=== PATIENT | female | born 1935 | race Caucasian/White ===

== ENCOUNTER 2023-03-03 08:22 | Inpatient (IN) | payer BC, MEDICARE ==
[2023-03-03 08:41] LABS: Glucose,Whole Blood 103 mg/dL (70-110)
--- NOTE | 2023-03-03 08:46 | ED ---
General Adult HPI - General Stated complaint: STROKE Time Seen by Provider: 03/03/23 08:29 Source: patient, EMS, RN notes reviewed, old records reviewed Mode of arrival: EMS Limitations: no limitations - History of Present Illness Initial comments: Patient is an 87-year-old female who presents the department complaining of neuro symptoms. Has a history of hypertension, hyperlipidemia, acid reflux. Is not on blood thinners. Did not fall. States last known well definitively was last night at 8 PM. Weeks up frequently throughout the night and did not obviously noticed symptoms from last time she woke was approximately 5-6 hours ago at 3-4 AM. Unknown of symptoms at this time. Awoke this morning again for the day and noticed that she had left-sided facial droop, slurred speech, left- sided weakness and paresthesias. Presents for further evaluation at this time. No history of strokes. States symptoms have been more or less constant since awakening. Has no other acute complaints at this time. Presents for further evaluation. As stated above, does not take any blood thinners. - Related Data Allergies Allergy/AdvReac Type Severity Reaction Status Date / Time No Known Allergies Allergy Verified 03/03/23 08:35 Review of Systems ROS Statement: Those systems with pertinent positive or pertinent negative responses have been documented in the HPI. Review of Systems: CONST: Denies fever EYES: Denies blurry vision ENT: Denies nasal congestion C/V: Denies Chest pain RESP: Denies shortness of breath GI: Denies abdominal pain : Denies dysuria SKIN: Denies rash. MSK: Denies joint pain. NEURO: Denies headache ROS Other: All systems not noted in ROS Statement are negative. Past Medical History Past Medical History: Hyperlipidemia, Hypertension Additional Past Medical History / Comment(s): "Water pill for fluid in body," unsure why. Nerve pill. History of Any Multi-Drug Resistant Organisms: None Reported Past Surgical History: No Surgical Hx Reported Past Psychological History: No Psychological Hx Reported Smoking Status: Never smoker Past Alcohol Use History: None Reported Past Drug Use History: None Reported General Exam - General Exam Comments Initial Comments: General: Appears in no acute distress. HEAD: Normal with no signs of head trauma. EYES: PERRLA, EOMI, conjunctiva normal, no discharge. Pupils are 3 mm and equal bilaterally. ENT: Hearing grossly intact, normal oropharynx. RESPIRATORY: Clear breath sounds bilaterally. No wheezes, rales, or rhonchi. C/V: Regular rate and rhythm. S1 and S2 auscultated, no edema, peripheral pulses 2+ and intact throughout ABD: Abd is soft, nontender, nondistended EXT: Normal range of motion, no obvious deformity SKIN: No rashes or lesions observed on exposed skin. NEURO: Alert and oriented 4. GCS of 15. NIH is 4. She receives one point for left-sided mild weakness of the left upper extremity with drift, 1 point for left-sided sensory deficits to light touch in the hand as well as the lower leg, 1 point for facial droop, 1 point for dysarthria. Limitations: no limitations Course Vital Signs 03/03/23 03/03/23 03/03/23 08:26 08:45 09:00 Temperature 97.8 F 97.6 F Pulse Rate 92 92 Respiratory 16 17 Rate Blood Pressure 117/81 O2 Sat by Pulse 97 98 Oximetry 03/03/23 03/03/23 03/03/23 09:15 09:30 09:45 Temperature Pulse Rate 94 93 88 Respiratory 18 16 18 Rate Blood Pressure 170/77 169/85 166/79 O2 Sat by Pulse 97 96 96 Oximetry 03/03/23 10:15 Temperature Pulse Rate 97 Respiratory 18 Rate Blood Pressure 155/85 O2 Sat by Pulse 98 Oximetry Medical Decision Making - Medical Decision Making Was pt. sent in by a medical professional or institution ([facility], CLIENT SOLUTIONS SPECIALIST, urgent care, hospital, or group home...) When possible be specific @ -No Did you speak to anyone other than the patient for history (EMS, parent, family, police, friend...)? What history was obtained from this source @ -No Did you review nursing and triage notes (agree or disagree)? Why? @ -I reviewed and agree with nursing and triage notes Were old charts reviewed (outside hosp., previous admission, EMS record, old EKG, old radiological studies, urgent care reports/EKG's, group home records)? Report findings @ -Old charts reviewed Differential Diagnosis (chest pain, altered mental status, abdominal pain women, abdominal pain men, vaginal bleeding, weakness, fever, dyspnea, syncope, headach e, dizziness, GI bleed, back pain, seizure, CVA, palpatations, mental health, musculoskeletal)? @ -Differential CVA Ischemic stroke, hemorrhagic stroke, brain tumor, atypical migraine, Wernicke's encephalopathy, seizure, multiple sclerosis, meningitis, encephalitis, hypoglycemia, Guillain-Herman, electrolytes disturbance, myasthenia gravis.... This is not meant to be an all-inclusive list EKG interpreted by me (3pts min.). @ -As above X-rays interpreted by me (1pt min.). @ -Chest x-ray reveals no obvious acute cardio pulmonary process. CT interpreted by me (1pt min.). @ -Patient's CT brain and CT angiogram of the head and neck reveals no obvious acute intracranial process or findings. No obvious evidence of stroke. Some anatomical variation seen in some of the arteries. U/S interpreted by me (1pt. min.). @ -None done What testing was considered but not performed or refused? (CT, X-rays, U/S, lab s)? Why? @ -None What meds were considered but not given or refused? Why? @ -Considered TPA, however patient is outside of the stroke window. Even if we considered her 3 AM to 4 AM wake-up is normal symptoms which she is uncertain, it is currently 8:30 AM and she is outside of the extended TPA window at this time. Last definitely known well was at 8 PM last night. Did you discuss the management of the patient with other professionals (professionals i.e. , PA, CLIENT SOLUTIONS SPECIALIST, lab, RT, psych nurse, social services, can solderer, teacher, medical scientific officer, adult protective caseworker)? Give summary @ -Neuro critical care Dr. Tompkins was paged at approximately 8:35 AM. Stroke activation at 8:30 AM.I spoke with Gina of the stroke team who works under Dr. Tompkins and discussed the case with him. She called back at [phone]. Was in agreement with the plan. They will also review the imaging. They were in agreement that patient is not a TPA candidate.I discussed the results with Gina who called back after they reviewed the imaging. They were in agreement with admission for medical management. Recommended Lipitor, 325 mg of aspirin, permissive hypertension, an MRI without contrast. These were ordered. Also recommended neuro consult. I spoke with Dr. Mendosa of [facility] who accepted the admission. I spoke with Dr. Julio of neurology who accepted the consult was in agreement with the plan. Was smoking cessation discussed for >3mins.? @ -No Was critical care preformed (if so, how long)? @ -Yes, 38 minutes Were there social determinants of health that impacted care today? How? (Homelessness, low income, unemployed, alcoholism, drug addiction, transportation, low edu. Level, literacy, decrease access to med. care, assisted, rehab)? @ -No Was there de-escalation of care discussed even if they declined (Discuss DNR or withdrawal of care, Hospice)? DNR status @ -No What co-morbidities impacted this encounter? (DM, HTN, Smoking, COPD, CAD, Cancer, CVA, ARF, Chemo, Hep., AIDS, mental health diagnosis, sleep apnea, morbid obesity)? @ -None Was patient admitted / discharged? Hospital course, mention meds given and route, prescriptions, significant lab abnormalities, going to OR and other pertinent info. @ -Based on the patient's presentation and physical exam, presents complaining of neuro symptoms. Has an NIH of 4. Definitive last known well was at 8 PM last night. Possibly didn't have symptoms this morning between 3 AM and 4 AM but is uncertain. Either way is greater than 4-1/2 hours definitively since onset of symptoms and therefore does not fall within the time period for TPA administration. I did discuss this with the patient as risks far outweigh the benefits for her and she was in agreement this plan. Patient was made a code stroke. Dr. Tompkins was paged at [phone]. His team, YADIRA Fuentes callback at [phone] and was in agreement with the plan for workup and in agreement that patient is not a TPA candidate. Vital signs within acceptable limits. Patient's imaging negative for any obvious stroke, bleed, large vessel occlusion. EKG shows no signs of acute ischemia. Patient's laboratory studies are unremarkable. On reevaluation, NIH remains a 4. I discussed results with the patient. I discussed the results of the imaging with Gina of the stroke team from neuro critical care under Dr. Tompkins who recommended medical management, senna patient on Lipitor and 325 mg of aspirin, progressive hypertension, as well as an MRI without contrast. This was completed. Neurology Dr. Robertson was consulted and notified and he was in agreement with the plan. I spoke with the admitting physician, Dr. Mendosa who accepted the patient. Patient was in agreement this plan. Undiagnosed new problem with uncertain prognosis? @ -No Drug Therapy requiring intensive monitoring for toxicity (Heparin, Nitro, Insulin, Cardizem)? @ -No Were any procedures done? @ -No Diagnosis/symptom? @ -CVA Acute, or Chronic, or Acute on Chronic? @ -Acute Uncomplicated (without systemic symptoms) or Complicated (systemic symptoms)? @ -Complicated Side effects of treatment? @ -none Exacerbation, Progression, or Severe Exacerbation] @ -no Poses a threat to life or bodily function? @ -Yes - Lab Data Result diagrams: 03/03/23 08:35 03/03/23 08:35 Lab Results 03/03/23 03/03/23 03/03/23 Range/Units 08:30 08:35 08:35 WBC 7.9 (3.8-10.6) k/uL RBC 5.11 (3.80-5.40) m/uL Hgb 15.6 (11.4-16.0) gm/dL Hct 46.9 H (34.0-46.0) % MCV 91.7 (80.0-100.0) fL MCH 30.6 (25.0-35.0) pg MCHC 33.3 (31.0-37.0) g/dL RDW 12.1 (11.5-15.5) % Plt Count 277 (150-450) k/uL MPV 8.0 Neutrophils % 70 % Lymphocytes % 21 % Monocytes % 5 % Eosinophils % 2 % Basophils % 0 % Neutrophils # 5.5 (1.3-7.7) k/uL Lymphocytes # 1.6 (1.0-4.8) k/uL Monocytes # 0.4 (0-1.0) k/uL Eosinophils # 0.2 (0-0.7) k/uL Basophils # 0.0 (0-0.2) k/uL PT 10.5 (10.0-12.5) sec INR 0.9 (<1.2) APTT 22.7 (22.0-30.0) sec Sodium (137-145) mmol/L Potassium (3.5-5.1) mmol/L Chloride (98-107) mmol/L Carbon Dioxide (22-30) mmol/L Anion Gap mmol/L BUN (7-17) mg/dL Creatinine (0.52-1.04) mg/dL Est GFR (CKD-EPI)AfAm (>60 ml/min/1.73 sqM) Est GFR (CKD-EPI)NonAf (>60 ml/min/1.73 sqM) Glucose (74-99) mg/dL POC Glucose (mg/dL) 103 (70-110) mg/dL POC Glu Manager Content ID June Calcium (8.4-10.2) mg/dL Total Bilirubin (0.2-1.3) mg/dL AST (14-36) U/L ALT (4-34) U/L Alkaline Phosphatase (38-126) U/L Creatine Kinase (30-135) U/L Troponin I (0.000-0.034) ng/mL Total Protein (6.3-8.2) g/dL Albumin (3.5-5.0) g/dL 03/03/23 03/03/23 Range/Units 08:35 08:35 WBC (3.8-10.6) k/uL RBC (3.80-5.40) m/uL Hgb (11.4-16.0) gm/dL Hct (34.0-46.0) % MCV (80.0-100.0) fL MCH (25.0-35.0) pg MCHC (31.0-37.0) g/dL RDW (11.5-15.5) % Plt Count (150-450) k/uL MPV Neutrophils % % Lymphocytes % % Monocytes % % Eosinophils % % Basophils % % Neutrophils # (1.3-7.7) k/uL Lymphocytes # (1.0-4.8) k/uL Monocytes # (0-1.0) k/uL Eosinophils # (0-0.7) k/uL Basophils # (0-0.2) k/uL PT (10.0-12.5) sec INR (<1.2) APTT (22.0-30.0) sec Sodium 138 (137-145) mmol/L Potassium 4.8 (3.5-5.1) mmol/L Chloride 101 (98-107) mmol/L Carbon Dioxide 27 (22-30) mmol/L Anion Gap 10 mmol/L BUN 13 (7-17) mg/dL Creatinine 0.62 (0.52-1.04) mg/dL Est GFR (CKD-EPI)AfAm >90 (>60 ml/min/1.73 sqM) Est GFR (CKD-EPI)NonAf 82 (>60 ml/min/1.73 sqM) Glucose 124 H (74-99) mg/dL POC Glucose (mg/dL) (70-110) mg/dL POC Glu Manager Content ID Calcium 10.1 (8.4-10.2) mg/dL Total Bilirubin 0.9 (0.2-1.3) mg/dL AST 39 H (14-36) U/L ALT 23 (4-34) U/L Alkaline Phosphatase 99 (38-126) U/L Creatine Kinase 68 (30-135) U/L Troponin I <0.012 (0.000-0.034) ng/mL Total Protein 7.9 (6.3-8.2) g/dL Albumin 4.4 (3.5-5.0) g/dL - EKG Data -: EKG Interpreted by Me EKG Comments: 12-lead Electrocardiogram Interpretation Note EKG was reviewed and interpreted by myself. 12-lead ECG performed at 0851 is interpreted by me as revealing normal sinus rhythm at a rate of 90 beats per minute. [place] is normal. [place] interval is 182 ms, QRS duration is 86 ms, QTc is 400 ms.. There were no ST or T wave abnormalities to suggest myocardial ischemia or injury. R wave progression across the precordium was satisfactory. By my interpretation this EKG is non-diagnostic for acute ischemia. Critical Care Time Critical Care Time: Yes Total Critical Care Time: 38 Disposition Clinical Impression: Cerebrovascular accident (CVA) Disposition: ADMITTED IP TO THIS HOSP Condition: Stable Referrals: CASIMIRO TYLER, KESHA [REFERRING] - 1-2 days Time of Disposition: 09:41
[2023-03-03 08:49] LABS: Basophils % (A) 0 %; Eosinophils # (A) 0.2 k/uL (0-0.7); Eosinophils % (A) 2 %; HCT 46.9 % (34.0-46.0); HGB 15.6 gm/dL (11.4-16.0); Lymphocytes # (A) 1.6 k/uL (1.0-4.8); Lymphocytes % (A) 21 %; MCH 30.6 pg (25.0-35.0); MCHC 33.3 g/dL (31.0-37.0); MCV 91.7 fL (80.0-100.0); Monocytes # (A) 0.4 k/uL (0-1.0); Monocytes % (A) 5 %; Neutrophils # (A) 5.5 k/uL (1.3-7.7); Neutrophils % (A) 70 %; Platelet Count 277 k/uL (150-450); RBC 5.11 m/uL (3.80-5.40); RDW 12.1 % (11.5-15.5); WBC 7.9 k/uL (3.8-10.6)
--- NOTE | 2023-03-03 08:57 | CT ---
EXAMINATION TYPE: CT brain wo con DATE OF EXAM: 03/03/2023 COMPARISON: 01/17/2013 HISTORY: 87-year-old female slurred speech, lt facial droop TECHNIQUE: Examination was done in axial plane without intravenous contrast. Coronal and sagittal r econstructions performed. CT DLP: 1099.6 mGycm Automated exposure control for dose reduction was used. FINDINGS: There is no evidence of acute intracranial hemorrhage, acute ischemic changes, mass, mass-effect, or extra-axial fluid collection. There is no effacement of cerebral sulci or basal subarachnoid cister ns. There is no hydrocephalus. There is no midline shift. Cueto-white matter distinction is preserv ed. Paranasal sinuses and mastoid air cells well pneumatized. Orbits and globes are intact. IMPRESSION: No acute intracranial abnormality seen.
[2023-03-03 08:58] LABS: INR 0.9 (<1.2); Partial Thromboplastin Time 22.7 sec (22.0-30.0); Prothrombin Time 10.5 sec (10.0-12.5)
--- NOTE | 2023-03-03 09:00 | XR ---
EXAMINATION TYPE: XR chest 2V DATE OF EXAM: 03/03/2023 8:53 AM CLINICAL INDICATION:Female, 87 years old with history of altered mental status; COMPARISON: Chest radiographs from 07/20/2011. TECHNIQUE: XR chest 2V Frontal and lateral views of the chest. FINDINGS: Lungs/Pleura: There is no evidence of pleural effusion, focal consolidation, or pneumothorax. Pulmonary vascularity: Unremarkable. Heart/mediastinum: Cardiomediastinal silhouette is enlarged and stable. Atherosclerotic calcificatio ns are seen in the aorta. Musculoskeletal: No acute osseous pathology. IMPRESSION: Chronic changes without acute pulmonary process.
[2023-03-03 09:14] LABS: ALT 23 U/L (4-34); African American GFR (CKD) >90 (>60 ml/min/1.73 sqM); Albumin 4.4 g/dL (3.5-5.0); Anion Gap 10 mmol/L; Blood Urea Nitrogen 13 mg/dL (7-17); Carbon Dioxide 27 mmol/L (22-30); Chloride 101 mmol/L (98-107); Creatine Kinase 68 U/L (30-135); Glucose 124 mg/dL (74-99); Non-African American GFR(CKD) 82 (>60 ml/min/1.73 sqM); Sodium 138 mmol/L (137-145); Total Bilirubin 0.9 mg/dL (0.2-1.3)
[2023-03-03 09:24] LABS: AST 39 U/L (14-36); Alkaline Phosphatase 99 U/L (38-126); Calcium 10.1 mg/dL (8.4-10.2); Potassium 4.8 mmol/L (3.5-5.1); Total Protein 7.9 g/dL (6.3-8.2)
--- NOTE | 2023-03-03 09:31 | CT ---
EXAMINATION TYPE: CT angio head neck DATE OF EXAM: 03/03/2023 COMPARISON: None HISTORY: 87-year-old female slurred speech, lt facial droop TECHNIQUE: Contiguous axial scanning of the head and neck performed with IV Contrast, patient injecte d with 65 mL of Isovue 370. Coronal and sagittal reconstructions performed. 3-D reconstructions gener ated on a dedicated independent workstation. CT DLP: 329 mGycm Automated exposure control for dose reduction was used. FINDINGS: Neck: Mild to moderate atherosclerotic plaque within the aortic arch and conventional arch vessel branching anatomy. The right vertebral artery is dominant. Otherwise, both vertebral arteries are patent throughout thei r course. The right common carotid artery is patent. There is noncalcified plaque within the right carotid bulb contributing to mild to moderate, just und er 50% proximal right ICA stenosis by NASCET criteria. The left common and left internal carotid arteries are patent. Head: Dominant right vertebral artery. The V4 segment left vertebral artery becomes even more hypoplastic. Otherwise, both vertebral and basilar arteries are patent. There is persistent origin right PROGRAM DEVELOPMENT MANAGER. Posterior circulation otherwise patent. The bilateral internal carotid arteries are patent. Hypoplastic A1 segment right BERENICE. Anterior circul ation otherwise patent. No aneurysmal changes seen. IMPRESSION: NECK: 1. NONCALCIFIED PLAQUE CONTRIBUTING TO MILD, JUST UNDER 50% PROXIMAL RIGHT ICA STENOSIS. 2. 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 HEAD: 3. NO LARGE VESSEL INTRACRANIAL ARTERIAL OCCLUSION, SIGNIFICANT STENOSIS, OR ANEURYSMAL CHANGE IS SEE N. 4. ANATOMIC VARIATION: PERSISTENT ORIGIN RIGHT PROGRAM DEVELOPMENT MANAGER. V4 SEGMENT LEFT VERTEBRAL ARTERY BECOMES EV EN MORE HYPOPLASTIC. ALSO, HYPOPLASTIC A1 SEGMENT RIGHT BERENICE.
[2023-03-03] MEDS ORDERED: ASPIRIN 325 MG TAB PO STA (09:50)
[2023-03-03] MEDS ORDERED: ATORVASTATIN 40 MG TAB PO STA (09:59)
[2023-03-03] MEDS: ATORVASTATIN 80 MG TAB PO STA ×2 (09:59→10:01)
[2023-03-03 10:32] LABS: Appearance,Urine Clear (Clear); Bilirubin,Urine Negative (Negative); Blood,Urine Negative (Negative); Color,Urine Colorless; Glucose,Urine (UA) Negative (Negative); Ketones,Urine Negative (Negative); Leukocyte Esterase,Urine Negative (Negative); Nitrite,Urine Negative (Negative); Protein,Urine Negative (Negative); Specific Gravity,Urine 1.026 (1.001-1.035); Urobilinogen,Urine <2.0 mg/dL (<2.0)
[2023-03-03 10:41] LABS: Amphetamine Screen,Urine Not Detected (NotDetected); Barbiturate Screen,Urine Not Detected (NotDetected); Benzodiazepines Screen,Urine Detected (NotDetected); Cocaine Screen,Urine Not Detected (NotDetected); Methadone Screen, Urine Not Detected (NotDetected); Opiate Screen,Urine Not Detected (NotDetected); Oxycodone Screen, Urine Not Detected (NotDetected); Phencyclidine Screen,Urine Not Detected (NotDetected); Tricyclic Antidepressant,Urine Not Detected (NotDetected); Urn Cannabinoid Scrn Not Detected (NotDetected)
--- NOTE | 2023-03-03 14:30 | MR ---
EXAMINATION TYPE: MR brain wo con DATE OF EXAM: 03/03/2023 1:41 PM CLINICAL INDICATION:Female, 87 years old with history of Neuro deficit, acute, stroke suspected, Slur red speech, left facial droop COMPARISON: 03/03/2023.. TECHNIQUE: Multi planar, multi sequence imaging was performed through the brain including: T1, T2, In version recovery, Diffusion weighted imaging, and gradient echo imaging. No gadolinium was given. FINDINGS: Areas of restricted diffusion within the right posterior frontal lobe cortex, the right cor jona radiata and more medial in the posterior right frontal lobe. The bernal-white junctions, ventricula r system, basal cisterns appear unremarkable. Scattered foci of high T2 signal intensity are seen w ithin the periventricular white matter. Midline structures show no abnormality. The susceptibility we ighted images do not reveal any evidence for micro-hemorrhage. The bone marrow signal is within normal limits. Paranasal sinuses and mastoid air cells: No significant paranasal sinus disease. Visualized orbits: Orbital contents are intact. IMPRESSION: 1. Acute/subacute right ayala radiata and right posterior frontal lobe cortical CVA. 2. Nonspecific white matter changes, likely secondary to small vessel ischemic disease.
--- NOTE | 2023-03-03 16:54 | P.HPIM ---
History of Present Illness H&P Date: 03/03/23 Chief Complaint: Left-sided facial droop 87-year-old female who presents the department complaining of neuro symptoms. Has a history of hypertension, hyperlipidemia, acid reflux. Is not on blood thinners. Did not fall. States last known well definitively was last night at 8 PM. Weeks up frequently throughout the night and did not obviously noticed symptoms from last time she woke was approximately 5-6 hours ago at 3-4 AM. Unknown of symptoms at this time. Awoke this morning again for the day and noticed that she had left-sided facial droop, slurred speech, left-sided weakness and paresthesias. Presents for further evaluation at this time. No history of strokes. States symptoms have been more or less constant since awakening. Has no other acute complaints at this time. Presents for further evaluation. As stated above, does not take any blood thinners. Code stroke was activated; patient is outside window for TPA Blood work revealed sodium 138, potassium 4.8, BUN/creatinine of 13/0.62 and blood glucose of 124, WBC 7.9, hemoglobin 15.6 and platelet count of 277, troponin less than 0.[address] head is negative for any acute intracranial abnormality; CT head and neck doesn't reveal any large vessel occlusion; mild proximal right ICA stenosis at 50% -- Patient was discussed with telemetry stroke team and is recommended admission for observation and to complete stroke workup and MRI is ordered Review of Systems REVIEW OF SYSTEMS: CONSTITUTIONAL: No fever, no malaise, no fatigue. HEENT: No recent visual problems or hearing problems. Denied any sore throat. CARDIOVASCULAR: No chest pain, orthopnea, PND, no palpitations, no syncope. PULMONARY: No shortness of breath, no cough, no hemoptysis. GASTROINTESTINAL: No diarrhea, no nausea, no vomiting, no abdominal pain. NEUROLOGICAL: No headaches, no weakness, no numbness. HEMATOLOGICAL: Denies any bleeding or petechiae. GENITOURINARY: Denies any burning micturition, frequency, or urgency. MUSCULOSKELETAL/RHEUMATOLOGICAL: Denies any joint pain, swelling, or any muscle pain. ENDOCRINE: Denies any polyuria or polydipsia. The rest of the 14-point review of systems is negative. Past Medical History Past Medical History: Hyperlipidemia, Hypertension Additional Past Medical History / Comment(s): "Water pill for fluid in body," unsure why. Nerve pill. History of Any Multi-Drug Resistant Organisms: None Reported Past Surgical History: No Surgical Hx Reported Past Psychological History: No Psychological Hx Reported Smoking Status: Never smoker Past Alcohol Use History: None Reported Past Drug Use History: None Reported Medications and Allergies Home Medications Medication Instructions Recorded Confirmed Type Atorvastatin [Lipitor] 40 mg PO HS 03/03/23 03/03/23 History Latanoprost [Latanoprost 0.005%] 1 drop BOTH EYES HS 03/03/23 03/03/23 History Levothyroxine Sodium [Synthroid] 75 mcg PO DAILY 03/03/23 03/03/23 History Omeprazole [PriLOSEC] 20 mg PO DAILY 03/03/23 03/03/23 History Spironolactone [Aldactone] 25 mg PO DAILY 03/03/23 03/03/23 History Timolol 0.5% Ophth Soln [Timoptic 1 drop BOTH EYES BID 03/03/23 03/03/23 History 0.5% Ophth Soln] amLODIPine [Norvasc] 5 mg PO BID 03/03/23 03/03/23 History diazePAM [Valium] 5 mg PO DAILY PRN 03/03/23 03/03/23 History Allergies Allergy/AdvReac Type Severity Reaction Status Date / Time No Known Allergies Allergy Verified 03/03/23 11:54 Physical Exam Vitals: Vital Signs Temp Pulse Resp BP Pulse Ox 03/03/23 11:44 89 17 154/88 98 03/03/23 11:14 86 16 162/47 97 03/03/23 10:45 88 18 163/83 98 03/03/23 10:15 97 18 155/85 98 03/03/23 09:45 88 18 166/79 96 03/03/23 09:30 93 16 169/85 96 03/03/23 09:15 94 18 170/77 97 03/03/23 09:00 92 17 117/81 98 03/03/23 08:45 97.6 F 92 16 97 03/03/23 08:26 97.8 F Intake and Output 03/02/23 03/03/23 03/03/23 22:59 06:59 14:59 Other: Weight 68.039 kg General: Appears in no acute distress. HEAD: Normal with no signs of head trauma. EYES: PERRLA, EOMI, conjunctiva normal, no discharge. Pupils are 3 mm and equal bilaterally. ENT: Hearing grossly intact, normal oropharynx. RESPIRATORY: Clear breath sounds bilaterally. No wheezes, rales, or rhonchi. C/V: Regular rate and rhythm. S1 and S2 auscultated, no edema, peripheral pulses 2+ and intact throughout ABD: Abd is soft, nontender, nondistended EXT: Normal range of motion, no obvious deformity SKIN: No rashes or lesions observed on exposed skin. NEURO: Alert and oriented 4. GCS of 15. NIH is 4. She receives one point for left-sided mild weakness of the left upper extremity with drift, 1 point for left-sided sensory deficits to light touch in the hand as well as the lower leg, 1 point for facial droop, 1 point for dysarthria. Results CBC & Chem 7: 03/03/23 08:35 03/03/23 08:35 Labs: Abnormal Lab Results - Last 24 Hours (Table) 03/03/23 03/03/23 03/03/23 Range/Units 08:35 08:35 08:35 Hct 46.9 H (34.0-46.0) % Glucose 124 H (74-99) mg/dL AST 39 H (14-36) U/L U Benzodiazepines Scrn Detected H (NotDetected) Assessment and Plan Assessment: 1. Acute CVA -- Patient presents with Left sided facial droop with slurred speech and left- sided weakness and paresthesias -- Head CT along with CTA head and neck was unremarkable - Patient has been evaluated by telemetry stroke team and is recommended MRI of the brain without contrast and aspirin 325 mg daily and Lipitor - Patient currently placed on neuro checks per protocol; seizure precautions - Aspirin 325 mg daily along with Lipitor 40 mg daily -- Permissive hypertension - Neurology consulted 2. Hypertension; patient takes amlodipine 5 mg twice a day along with Aldactone 25 mg daily; hold antihypertensive therapy for permissive hypertension 3. Hypothyroidism; levothyroxine 75 MCG daily 4. GERD/gastritis; omeprazole 20 mg daily DVT prophylaxis; SCDs only CODE STATUS; full code
[2023-03-03] MEDS ORDERED: CLOPIDOGREL 75 MG TAB PO STA (17:58)
--- NOTE | 2023-03-03 19:16 | US ---
EXAMINATION TYPE: US carotid duplex BILAT DATE OF EXAM: 03/03/2023 COMPARISON: CTA CLINICAL INDICATION: Female, 87 years old with history of Right ICA stenosis, <50% but probably sympt omatic; Right ICA stenosis on CTA TECHNIQUE: Carotid duplex ultrasound examination. Indirect Doppler criteria was utilized. FINDINGS: EXAM MEASUREMENTS: RIGHT: Peak Systolic Velocity (PSV) cm/sec ----- Right CCA: 102 ----- Right ICA: 191 ----- Right ECA: 182 ICA/CCA ratio: 1.9 RIGHT: End Diastole cm/sec ----- Right CCA: 12.5 ----- Right ICA: 24.1 ----- Right ECA: 27.5 LEFT: Peak Systolic Velocity (PSV) cm/sec ----- Left CCA: 131 ----- Left ICA: 120 ----- Left ECA: 139 ICA/CCA ratio: 0.9 LEFT: End Diastole cm/sec ----- Left CCA: 16.7 ----- Left ICA: 23.4 ----- Left ECA: 12.7 VERTEBRALS (direction of flow): Right Vertebral: Antegrade Left Vertebral: Antegrade Rhythm: Normal OUTDOOR LANDSCAPE ARCHITECT NOTES: Slightly elevated velocities right ICA with slightly higher ratios on right when c ompared to left IMPRESSION: 1. 50-69% stenosis of the right bifurcation. 2. Left and 50% stenosis of the left carotid bifurcation. Criteria for Assigning % of Stenosis / Diameter reduction (Estimation based on the indirect measurements of the internal carotid artery velocities (ICA PSV). 1. Normal (no stenosis)=ICA PSV < 125 cm/s: ratio < 2.0: ICA EDV<40 cm/s. 2. Less than 50% stenosis=ICA PSV < 125 cm/s: ratio < 2.0: ICA EDV<40 cm/s. 3. 50 to 69% stenosis=ICA PSV of 125 to 230 cm/s: ration 2.0 ? 4.0: ICA EDV 40-100 cm/s. 4. Greater than 70% stenosis to near occlusion= ICA PSV > 230 cm/s: ratio > 4.0: ICA EDV > 100 cm/s. 5. Near occlusion= ICA PSV velocities may be low or undetectable: variable ratio and ICA EDV. 6. Total occlusion=unable to detect flow.
[2023-03-03] MEDS: TIMOLOL 0.5% OPHTH DROPS 5 ML BTL BOTH EYES SCH (20:58)
[2023-03-03] MEDS ORDERED: ATORVASTATIN 40 MG TAB PO SCH (21:00)
[2023-03-03] MEDS ORDERED: LATANOPROST 0.005% OPHTH DROPS 2.5 ML BTL BOTH EYES SCH (21:00)
[2023-03-04] MEDS ORDERED: LEVOTHYROXINE 75 MCG TAB PO SCH (06:30)
[2023-03-04] MEDS: TIMOLOL 0.5% OPHTH DROPS 5 ML BTL BOTH EYES SCH (08:39)
[2023-03-04 08:49] VITALS: RESP 18
[2023-03-04] MEDS ORDERED: CLOPIDOGREL 75 MG TAB PO SCH (09:00)
[2023-03-04] MEDS ORDERED: ASPIRIN 81 MG PO SCH (09:00)
--- NOTE | 2023-03-04 09:31 | P.CNNES ---
History of Present Illness Consult date: 03/03/23 Requesting physician: Jarrell Vitale Reason for Consult: CVA History of Present Illness: Patient is a 87-year-old right-handed female with history of hypertension, otherwise very healthy, came to the hospital at 8:22 AM this morning with acute stroke symptoms. Patient's daughter was also present, who also provided with a history. Patient is very active, does not use any assistive device. Patient called her daughter this morning at 6:30 AM, telling that she is not feeling well. Her daughter lives next door to her, came over and saw there was obvious left facial droop and some slurred speech. She called 911. Patient subsequently mentioned that she woke up between 3-4 a.m. today and felt some weakness in the left leg like tingling as of the socks were too tight. She went to sleep, and when she woke up at around 6 AM, has those symptoms as mentioned. She also noticed some weakness of the left hand. As per EMS flow sheet when they arrive patient was sitting in the dining room, in a chair. She has left-sided facial droop, slurred speech and noticed that she has abnormal sensation in her left arm and left leg. Patient was otherwise alert and oriented 4 in no distress. Stroke scale was positive. It was reported that she woke up around 4 AM with no symptoms and then woke up again at 6 AM with facial droop slurred speech and abnormal sensation. EKG shows sinus rhythm and blood glucose was 137. Patient denied any headache, back pain, chest pain or abdominal pain. Denied any headache, dizziness or blurred vision. No nausea or vomiting. Patient's blood pressure at the scene was 150/93, pulse rate 87 respirations 16, saturation 95%. Vital signs on arrival blood pressure 117/81, pulse rate [address] head showed no acute intracranial process. I personally reviewed CT head, agree with the findings. Chest x-ray showed chronic changes without acute pulmonary process. Patient's blood test shows normal CBC, PT/PTT, normal CMP with AST mildly elevated 39. Troponin and CK are normal. UA negative. Urine drug screen positive for benzodiazepine. Stroke code was activated in the ED staff Dr. Vitale discussed with Dr. Tompkins, and patient was considered not a candidate for TPA because she came outside the window, last known well 3-4 a.m., although later patient has mentioned that she has some symptoms at that time as well with left leg sensation. Patient was not a candidate for thrombectomy because no large vessel occlusion. No previous history of strokes or TIA. She has history of cataract surgery. Patient has hypertension for 10+ years. Denies diabetes. She has hyperlipidemia, on Lipitor. She has never smoked. Patient has been in distress, as her in June 2022 upper they have been for 65 years. Patient does not use any assistive device. She was driving day before and lips completely independent. Patient does take aspirin 81 mg daily for about 10 years. She is very compliant with it. Patient also takes spironolactone, Valium 5 mg when necessary, amlodipine, omeprazole, levothyroxine and Lipitor 40 mg. Review of Systems Constitutional: Denies chills, Denies fever Eyes: denies blurred vision (macular degeneration), denies diplopia, denies pain Ears: right: decreased hearing (from [facility] 3 yrs ago), deny: ear discharge Ears, nose, mouth and throat: Denies headache, Denies sore throat, Denies vertigo Cardiovascular: Denies chest pain, Denies palpitations, Denies shortness of breath Respiratory: Denies cough, Denies excessive sputum Gastrointestinal: Denies abdominal pain, Denies diarrhea, Denies nausea, Denies vomiting Genitourinary: Reports urgency, Reports urinary frequency, Denies mixed incontinence Musculoskeletal: Denies low back pain, Denies myalgias, Denies neck pain Integumentary: Denies pruritus, Denies rash Neurological: Reports as per HPI Psychiatric: Reports anxiety, Reports depression ( passing ) Endocrine: Denies fatigue, Denies weight change Hematologic/Lymphatic: Denies easy bleeding, Denies easy bruising Past Medical History Past Medical History: Hyperlipidemia, Hypertension Additional Past Medical History / Comment(s): "Water pill for fluid in body," unsure why. Nerve pill. History of Any Multi-Drug Resistant Organisms: None Reported Past Surgical History: No Surgical Hx Reported Past Psychological History: No Psychological Hx Reported Smoking Status: Never smoker Past Alcohol Use History: None Reported Past Drug Use History: None Reported Medications and Allergies Home Medications Medication Instructions Recorded Confirmed Type Atorvastatin [Lipitor] 40 mg PO HS 03/03/23 03/03/23 History Latanoprost [Latanoprost 0.005%] 1 drop BOTH EYES HS 03/03/23 03/03/23 History Levothyroxine Sodium [Synthroid] 75 mcg PO DAILY 03/03/23 03/03/23 History Omeprazole [PriLOSEC] 20 mg PO DAILY 03/03/23 03/03/23 History Spironolactone [Aldactone] 25 mg PO DAILY 03/03/23 03/03/23 History Timolol 0.5% Ophth Soln [Timoptic 1 drop BOTH EYES BID 03/03/23 03/03/23 History 0.5% Ophth Soln] amLODIPine [Norvasc] 5 mg PO BID 03/03/23 03/03/23 History diazePAM [Valium] 5 mg PO DAILY PRN 03/03/23 03/03/23 History Allergies Allergy/AdvReac Type Severity Reaction Status Date / Time No Known Allergies Allergy Verified 03/03/23 11:54 Physical Examination - Vital Signs Vital Signs: Vital Signs Temp Pulse Resp BP Pulse Ox 03/03/23 17:10 98.2 F 84 17 150/73 97 03/03/23 15:45 98.0 F 82 16 150/85 98 03/03/23 12:30 86 17 150/76 97 03/03/23 12:00 98.0 F 86 17 147/69 96 03/03/23 11:44 89 17 154/88 98 03/03/23 11:14 86 16 162/47 97 03/03/23 10:45 88 18 163/83 98 03/03/23 10:15 97 18 155/85 98 03/03/23 09:45 88 18 166/79 96 03/03/23 09:30 93 16 169/85 96 03/03/23 09:15 94 18 170/77 97 03/03/23 09:00 92 17 117/81 98 03/03/23 08:45 97.6 F 92 16 97 03/03/23 08:26 97.8 F Intake and Output 03/03/23 03/03/23 03/03/23 06:59 14:59 22:59 Other: Weight 68.039 kg Patient is an elderly female, very pleasant, in no acute distress. Patient is alert awake oriented to time place and person. Speech and language functions are normal. Patient can name and repeat very well. No aphasia, although patient may have very mild dysarthria. Attention, concentration and fund of knowledge is adequate. On cranial nerve examination, pupils are equal, round and reacting to light, visual heath are full on confrontation, with no neglect on double simultaneous stimulation. Extraocular muscles are intact with no nystagmus. Patient has moderate left facial weakness, central type, tongue protrudes to the midline. Palatal elevation and sensation normal, hearing and shoulder shrug normal, facial sensation normal. On muscle strength testing, there is left pronation, no drift. The strength is (right/left) deltoid 5/5, biceps 5/5, triceps 5/5, laboratory technologist 5/5-4+, hip flexion 5-/5-, ankle dorsiflexion 5/5-. Deep tendon reflexes are (right/left) biceps 2/2+, brachioradialis 2/2+, knees 2/2, ankles withdrawal bilaterally. Sensory to touch is equal in the arms, but decreased sensation in the left lower extremity as compared to the right lower extremity. There is no neglect on double simultaneous stimulation. Cerebellar function showed no ataxia for [id number]-wk-[id number] testing. No dysdiadochokinesia. No ataxia for wjhe-sw-wque testing on either side. Tone an d bulk of muscles normal. Gait deferred.. On general examination, there is no carotid bruit or murmur, S1-S2 audible. Chest is clear on consultation. Abdomen is soft nontender. No organomegaly, b owel sounds present. Peripheral pulses are present. No peripheral edema. Results - Laboratory Findings CBC and BMP: 03/03/23 08:35 03/03/23 08:35 Abnormal Lab Findings: Abnormal Labs 03/03/23 03/03/23 03/03/23 08:35 08:35 08:35 Hct 46.9 H Glucose 124 H AST 39 H U Benzodiazepines Scrn Detected H Assessment and Plan Assessment: * Acute ischemic stroke, multifocal (4 areas, but small), involving right hemispheric region involving the right ayala radiata and right posterior frontal lobe cortex. Exact cause is uncertain as patient is compliant with her medications and takes aspirin 81 mg daily. CTA of head and neck revealed slightly less than 50% stenosis right ICA, which uncertain if symptomatic. * Right ICA stenosis, moderate degree * Hypertension * Hyperlipidemia Plan: * MRI of the brain without contrast, revealed acute/subacute right ayala radiata and right posterior frontal lobe cortical CVA. Nonspecific white matter changes, likely secondary to small vessel ischemic disease. I personally reviewed MRI, agree with the findings. * 2-D echo with bubble study to rule out PFO * CTA neck showed: Noncalcified plaque contributing to mild, just under 50% proximal right ICA stenosis. An anatomic variation, with a dominant right vertebral artery. * CTA of the head showed no large vessel intracranial arterial occlusion, significant stenosis or aneurysmal change. Anatomic radiation with persistent origin right LABORATORY SCIENTIST. Hypoplastic A1 segment right BERENICE. * Carotid Doppler, for further evaluation of right ICA stenosis. * Patient's family requesting vascular surgery consultation for right ICA stenosis. * Fasting a.m. lipid panel * Hemoglobin A1c * Permissive hypertension for next 24-48 hours * Patient was taking aspirin 81 mg daily for last 10 years. Patient has failed aspirin regimen. We will add Plavix 75 mg daily. Recommend continuing DAPT for 21 days, then stop aspirin and continue Plavix. We will give loading dose of Plavix 150 mg 1 dose today. * Neuro checks every 4 hours. * Telemetry monitoring rule out any arrhythmia * PT, OT, speech therapy * DVT prophylaxis: Heparin 5000 units subcu every 8 hours * Neurology will continue to follow. Thank you for the consult. Time with Patient: Greater than 30
[2023-03-04 11:26] LABS: Basophils # (A) 0.1 k/uL (0-0.2); Basophils % (A) 1 %; Eosinophils # (A) 0.1 k/uL (0-0.7); Eosinophils % (A) 1 %; HCT 46.7 % (34.0-46.0); HGB 15.6 gm/dL (11.4-16.0); Lymphocytes # (A) 1.8 k/uL (1.0-4.8); Lymphocytes % (A) 23 %; MCHC 33.4 g/dL (31.0-37.0); MCV 92.9 fL (80.0-100.0); Mean Platelet Volume 7.9; Monocytes # (A) 0.5 k/uL (0-1.0); Monocytes % (A) 6 %; Neutrophils # (A) 5.3 k/uL (1.3-7.7); Neutrophils % (A) 68 %; Platelet Count 216 k/uL (150-450); RBC 5.03 m/uL (3.80-5.40); RDW 12.2 % (11.5-15.5); WBC 7.8 k/uL (3.8-10.6)
--- NOTE | 2023-03-04 14:27 | CA ---
Transthoracic Echo Report Name: Liseth Benavides Age: 87 Gender: F : 1935 Exam Date: 03/04/2023 10:14 Exam Location: [facility] Ht (in): 66 Wt (lb): 150 Ordering Physician: Latosha Julio MD Attending/Referring Phys: Product Inspection Coordinator Aquiles Holcomb Procedure CPT: Indications: Acute stroke, multifocal Cardiac Hx: Technical Quality: Fair Contrast 1: Total Dose (mL): Contrast 2: Total Dose (mL): MEASUREMENTS (Male / Female) Normal Values 2D ECHO LV Diastolic Diameter PLAX 2.9 cm 4.2 - 5.9 / 3.9 - 5.3 cm LV Systolic Diameter PLAX 1.6 cm IVS Diastolic Thickness 1.3 cm 0.6 - 1.0 / 0.6 - 0.9 cm LVPW Diastolic Thickness 1.3 cm 0.6 - 1.0 / 0.6 - 0.9 cm LV Relative Wall Thickness 0.9 RV Internal Dim ED PLAX 2.1 cm LVOT Diameter 2.0 cm Aortic Root Diameter 2.5 cm LA Systolic Diameter LX 2.4 cm 3.0 - 4.0 / 2.7 - 3.8 cm LV Diastolic Volume MOD BP 31.8 cm??? 67 - 155 / 56 - 104 cm??? LV Systolic Volume MOD BP 14.9 cm??? - / 19 - 49 cm??? LV Ejection Fraction MOD BP 53.2 % >= 55 % LV Cardiac Index MOD BP 784.5 cm???/min???m??? LV Diastolic Volume MOD 4C 37.0 cm??? LV Systolic Volume MOD 4C 18.7 cm??? LV Ejection Fraction MOD 4C 49.4 % LV Cardiac Index MOD 4C 850.2 cm???/min???m??? LV Diastolic Length 4C 5.4 cm LV Systolic Length 4C 5.1 cm LV Diastolic Volume MOD 2C 26.7 cm??? LV Systolic Volume MOD 2C 11.6 cm??? LV Ejection Fraction MOD 2C 56.7 % LV Cardiac Index MOD 2C 703.3 cm???/min???m??? LV Diastolic Length 2C 5.3 cm LV Systolic Length 2C 4.9 cm LA Volume 32.5 cm??? 18 - 58 / 22 - 52 cm??? LA Volume Index 18.2 cm???/m??? 16 - 28 cm???/m??? DOPPLER AV Peak Velocity 187.1 cm/s AV Peak Gradient 14.0 mmHg AV Mean Velocity 128.3 cm/s AV Mean Gradient 7.7 mmHg AV Velocity Time Integral 42.6 cm LVOT Peak Velocity 115.3 cm/s LVOT Peak Gradient 5.3 mmHg LVOT Velocity Time Integral 26.7 cm LVOT Stroke Volume 85.1 cm??? LVOT Stroke Volume Index 48.1 ml/m??? LVOT Cardiac Index 3949.1 cm???/min???m??? AV Area Cont Eq vti 2.0 cm??? AV Area Cont Eq pk 2.0 cm??? MV Peak Velocity 150.1 cm/s MV Peak Gradient 9.0 mmHg MV Mean Velocity 77.3 cm/s MV Mean Gradient 3.0 mmHg MV Velocity Time Integral 38.5 cm MR Peak Velocity 429.6 cm/s MR Peak Gradient 73.8 mmHg Mitral E Point Velocity 91.2 cm/s Mitral A Point Velocity 134.9 cm/s Mitral E to A Ratio 0.7 MV Deceleration Time 263.3 ms MV E' Velocity 4.7 cm/s Mitral E to MV E' Ratio 19.3 TR Peak Velocity 263.3 cm/s TR Peak Gradient 27.7 mmHg Right Ventricular Systolic Press 32.7 mmHg PV Peak Velocity 100.9 cm/s PV Peak Gradient 4.1 mmHg FINDINGS Left Ventricle Normal LV six=ze and wakk thickness. Left ventricular ejection fraction is estimated at 50-55 %. Right Ventricle Normal right ventricular size. Right Atrium Normal right atrial size. Left Atrium Normal left atrial size. Negative agitated saline study. Mitral Valve Mild to moderate posterior Mitral calcification. Mild MR. Aortic Valve Mild to moderate AV calcification. Mild AI. Tricuspid Valve Structurally normal tricuspid valve. Mild TR. Pulmonic Valve Pulmonic valve not well visualized. No pulmonic regurgitation. Pericardium Normal pericardium. Aorta Normal size aortic root. CONCLUSIONS Negative bubble study. Normal LV size and systolic function Previewed by: Dr. Champ Vu MD (Electronically Signed) Final Date: 04 March 2023 14:26
[2023-03-04 14:34] LABS: African American GFR (CKD) 89 (>60 ml/min/1.73 sqM); Anion Gap 13 mmol/L; Blood Urea Nitrogen 16 mg/dL (7-17); Calcium 9.7 mg/dL (8.4-10.2); Carbon Dioxide 24 mmol/L (22-30); Chloride 102 mmol/L (98-107); Glucose 186 mg/dL (74-99); Non-African American GFR(CKD) 77 (>60 ml/min/1.73 sqM); Sodium 139 mmol/L (137-145)
--- NOTE | 2023-03-04 15:57 | P.GSCN ---
History of Present Illness Consult date: 03/04/23 Reason for Consult: Right carotid stenosis/right hemispheric CVA. History of present illness: Patient is an 87-year-old female who yesterday morning experienced weakness of the left arm and leg associated with left facial droop. This was the first time she has ever experienced a neurologic event. She subsequently presented to the emergency department. Since yesterday morning her neurological symptoms have been improving. She was a never smoker. She denies any previous myocardial infarction. She endorsed no history of claudication. Past Medical History Past Medical History: Hyperlipidemia, Hypertension Additional Past Medical History / Comment(s): "Water pill for fluid in body," unsure why. Nerve pill. History of Any Multi-Drug Resistant Organisms: None Reported Past Surgical History: No Surgical Hx Reported Past Psychological History: No Psychological Hx Reported Smoking Status: Never smoker Past Alcohol Use History: None Reported Past Drug Use History: None Reported Medications and Allergies Home Medications Medication Instructions Recorded Confirmed Type Atorvastatin [Lipitor] 40 mg PO HS 03/03/23 03/03/23 History Latanoprost [Latanoprost 0.005%] 1 drop BOTH EYES HS 03/03/23 03/03/23 History Levothyroxine Sodium [Synthroid] 75 mcg PO DAILY 03/03/23 03/03/23 History Omeprazole [PriLOSEC] 20 mg PO DAILY 03/03/23 03/03/23 History Spironolactone [Aldactone] 25 mg PO DAILY 03/03/23 03/03/23 History Timolol 0.5% Ophth Soln [Timoptic 1 drop BOTH EYES BID 03/03/23 03/03/23 History 0.5% Ophth Soln] amLODIPine [Norvasc] 5 mg PO BID 03/03/23 03/03/23 History diazePAM [Valium] 5 mg PO DAILY PRN 03/03/23 03/03/23 History Allergies Allergy/AdvReac Type Severity Reaction Status Date / Time No Known Allergies Allergy Verified 03/03/23 11:54 Surgical - Exam Osteopathic Statement: *. No significant issues noted on an osteopathic structural exam other than those noted in the History and Physical/Consult. Vital Signs Temp 97.8 F 03/03/23 08:26 Examination revealed left facial droop. Remaining cranial nerve evaluation is unremarkable Nearly normal upper and lower extremity strength is identified on the left compared to the contralateral side. Heart: Regular Lungs: Clear to auscultation bilaterally. Carotid bruit not detected. Femoral, popliteal, DP pulses are intact bilaterally. No leg edema noted. I reviewed the carotid duplex and CT angiography of the carotids. Both demonstrated approximately 50% right ICA stenosis. A long discussion with the patient in reference to these findings. Given the patient's age I believe she might be more properly treated with TCAR procedure as opposed to carotid endarterectomy. I discussed this with and suggested outpatient follow-up with one of my 2 partners for potential carotid stenting via the TCAR approach. I agree with aspirin/statin therapy. Results - Labs 03/04/23 10:33 03/04/23 10:33 Abnormal Lab Results - Last 24 Hours (Table) 03/04/23 03/04/23 Range/Units 10:33 10:33 Hct 46.7 H (34.0-46.0) % Glucose 186 H (74-99) mg/dL Diabetes panel 03/04/23 Range/Units 10:33 Sodium 139 (137-145) mmol/L Potassium 4.0 (3.5-5.1) mmol/L Chloride 102 (98-107) mmol/L Carbon Dioxide 24 (22-30) mmol/L BUN 16 (7-17) mg/dL Creatinine 0.71 (0.52-1.04) mg/dL Glucose 186 H (74-99) mg/dL Calcium 9.7 (8.4-10.2) mg/dL Calcium panel 03/04/23 Range/Units 10:33 Calcium 9.7 (8.4-10.2) mg/dL Pituitary panel 03/04/23 Range/Units 10:33 Sodium 139 (137-145) mmol/L Potassium 4.0 (3.5-5.1) mmol/L Chloride 102 (98-107) mmol/L Carbon Dioxide 24 (22-30) mmol/L BUN 16 (7-17) mg/dL Creatinine 0.71 (0.52-1.04) mg/dL Glucose 186 H (74-99) mg/dL Calcium 9.7 (8.4-10.2) mg/dL Adrenal panel 03/04/23 Range/Units 10:33 Sodium 139 (137-145) mmol/L Potassium 4.0 (3.5-5.1) mmol/L Chloride 102 (98-107) mmol/L Carbon Dioxide 24 (22-30) mmol/L BUN 16 (7-17) mg/dL Creatinine 0.71 (0.52-1.04) mg/dL Glucose 186 H (74-99) mg/dL Calcium 9.7 (8.4-10.2) mg/dL - Imaging Additional studies: Carotid duplex and CT angiography imaging and results reviewed Assessment and Plan Assessment: 1: Approximately 50% right ICA stenosis, most likely symptomatic. 2: Right hemispheric CVA with improving symptoms. Plan: I agree with currently instituted medical therapy. Would recommend office follow-up with either Dr. Tan or Dr. Navarrete for evaluation reference to possible TCAR procedure. Time with Patient: Greater than 30
--- NOTE | 2023-03-04 17:05 | P.DS ---
Providers Date of admission: 03/03/23 09:52 Expected date of discharge: 03/04/23 Attending physician: Hakeem Collier Consults: 03/03/23 09:51 Consult Physician Routine Consulting Provider: Latosha Julio Consult Reason/Comments: CVA Do you want consulting provider notified?: Yes 03/03/23 18:00 Consult Physician Routine Consulting Provider: Darcy Tan Consult Reason/Comments: Right ICA stenosis < 50%, but appears symptomatic, Do you want consulting provider notified?: Yes Primary care physician: Maty Tyler [facility] Course: Chief Complaint: Left-sided facial droop 87-year-old female who presents the department complaining of neuro symptoms. Has a history of hypertension, hyperlipidemia, acid reflux. Is not on blood thinners. Did not fall. States last known well definitively was last night at 8 PM. Weeks up frequently throughout the night and did not obviously noticed symptoms from last time she woke was approximately 5-6 hours ago at 3-4 AM. Unknown of symptoms at this time. Awoke this morning again for the day and noticed that she had left-sided facial droop, slurred speech, left-sided weakness and paresthesias. Presents for further evaluation at this time. No history of strokes. States symptoms have been more or less constant since awakening. Has no other acute complaints at this time. Presents for further e valuation. As stated above, does not take any blood thinners. Code stroke was activated; patient is outside window for TPA Blood work revealed sodium 138, potassium 4.8, BUN/creatinine of 13/0.62 and blood glucose of 124, WBC 7.9, hemoglobin 15.6 and platelet count of 277, troponin less than 0.[address] head is negative for any acute intracranial abnormality; CT head and neck newsome sn't reveal any large vessel occlusion; mild proximal right ICA stenosis at 50% -- Patient was discussed with telemetry stroke team and is recommended admission for observation and to complete stroke workup and MRI is ordered March 04: I assumed care of the patient today. This morning saw the patient in the ER. Her daughter the bedside. Facial droop better. Speech is better. Numbness tingling in the left leg is improved/resolved. Left arm weakness is still present but slightly better. Later 2-D echocardiogram results reviewed-no thrombus. No shunt. Spoke to Dr. Jordan from vascular. Patient will benefit from a stent he feels N patient should follow-up with Dr. Navarrete outpatient. Also discussed with Dr. Robertson from neurology. Continue aspirin and Plavix and stop aspirin after 4 weeks. Patient has been cleared for discharge by both neurology and vascular. Patient is to resume her blood pressure medications. Dose of Lipitor increased to 80 mg. Spoke to patient's daughter Elissa over the phone-questions answered Discussion and discharge planning more than 35 minutes On exam: 97.7, 74, 18, 160/75, 99% room air Neuro: Some left facial weakness. Left arm power 3/5. Speech normal Cardiovascular: First seconds are normal, no edema Psychiatry: AO 3, mood affect normal Past Medical History Past Medical History: Hyperlipidemia, Hypertension Additional Past Medical History / Comment(s): "Water pill for fluid in body," unsure why. Nerve pill. History of Any Multi-Drug Resistant Organisms: None Reported Past Surgical History: No Surgical Hx Reported Past Psychological History: No Psychological Hx Reported Smoking Status: Never smoker Past Alcohol Use History: None Reported Past Drug Use History: None Reported INVESTIGATIONS, reviewed in the clinical context: 2-D echocardiogram: EF 50-55%. No shunt Carotid Doppler 50-69% stenosis of the right bifurcation. Brain MRI: Acute/subacute right coronary radiata and right posterior frontal lobe cortical CVA. Nonspecific white matter changes Assessment: 1. Acute CVA -- Patient presents with Left sided facial droop with slurred speech and left- sided weakness and paresthesias of the left lower extremity: Better -- Head CT along with CTA head and neck was unremarkable - Patient has been evaluated by telemetry stroke team and is recommended MRI of the brain without contrast and aspirin 325 mg daily and Lipitor - Aspirin 81 mg daily for 4 weeks. Plavix was loaded. To continue senna 5 mg a day Follow brady Justin or Dr. Navarrete for probable carotid stent on the right side 2. Hypertension; patient takes amlodipine 5 mg twice a day along with Aldactone 25 mg daily; 3. Hypothyroidism; levothyroxine 75 MCG daily 4. GERD/gastritis; omeprazole 20 mg daily CODE STATUS; full code Disposition: Home Plan - Discharge Summary New Discharge Prescriptions: New Aspirin 81 mg PO DAILY tab Clopidogrel [Plavix] 75 mg PO DAILY #30 tab Atorvastatin Calcium [Lipitor] 80 mg PO HS #30 tablet Continue Spironolactone [Aldactone] 25 mg PO DAILY diazePAM [Valium] 5 mg PO DAILY PRN PRN Reason: Anxiety amLODIPine [Norvasc] 5 mg PO BID Omeprazole [PriLOSEC] 20 mg PO DAILY Timolol 0.5% Ophth Soln [Timoptic 0.5% Ophth Soln] 1 drop BOTH EYES BID Levothyroxine Sodium [Synthroid] 75 mcg PO DAILY Latanoprost [Latanoprost 0.005%] 1 drop BOTH EYES HS Discontinued Atorvastatin [Lipitor] 40 mg PO HS Discharge Medication List Latanoprost [Latanoprost 0.005%] 1 drop BOTH EYES HS 03/03/23 [History] Levothyroxine Sodium [Synthroid] 75 mcg PO DAILY 03/03/23 [History] Omeprazole [PriLOSEC] 20 mg PO DAILY 03/03/23 [History] Spironolactone [Aldactone] 25 mg PO DAILY 03/03/23 [History] Timolol 0.5% Ophth Soln [Timoptic 0.5% Ophth Soln] 1 drop BOTH EYES BID 03/03/23 [History] amLODIPine [Norvasc] 5 mg PO BID 03/03/23 [History] diazePAM [Valium] 5 mg PO DAILY PRN 03/03/23 [History] Aspirin 81 mg PO DAILY tab 03/04/23 [Rx] Atorvastatin Calcium [Lipitor] 80 mg PO HS #30 tablet 03/04/23 [Rx] Clopidogrel [Plavix] 75 mg PO DAILY #30 tab 03/04/23 [Rx] Follow up Appointment(s)/Referral(s): CASIMIRO TYLER NPC [REFERRING] - 1-2 days Toro Parisi MD [REFERRING] - 1 Week Chevy Navarrete DO [STAFF PHYSICIAN] - 1 Week Activity/Diet/Wound Care/Special Instructions: Stop aspirin after 4 weeks
[2023-03-04 17:45] VITALS: BP 163/83; PULSE 82; TEMP 97.8
[2023-03-04 23:55] LABS: Chol/HDL Ratio 2.77 Ratio; LDL Cholesterol,Calculated 95.4 mg/dL (0.0-131.0); VLDL Calculation 12.64 mg/dL (5.00-40.00)
--- NOTE | 2023-03-05 11:53 | P.PN ---
Subjective Progress Note Date: 03/04/23 Patient was seen for a follow-up. Patient feels she is doing much better. Patient's daughters, [id number] was present. Denies any new focal symptoms. Denies headache. Her speech is much improved. Patient states the sensation in the left leg has resolved. She believes that her gait is not as well. She has to be careful. Objective - Vital Signs Vital signs: Vital Signs Temp 97.7 F 03/04/23 14:22 Pulse 74 03/04/23 14:22 Resp 18 03/04/23 14:22 BP 160/75 03/04/23 14:22 Pulse Ox 99 03/04/23 14:22 FiO2 Intake & Output 03/03/23 03/04/23 03/04/23 18:59 06:59 18:59 Weight 68.039 kg - Exam Patient's mental status, speech and language functions are normal. No dysarthria, as patient mentions that only when she is tired, she slightly slurred speech. Language functions are normal. On cranial examination, patient has mild left facial asymmetry, central type, but better than yesterday. Visual heath are full. On muscle strength testing, patient has left pronator drift about 5. The strength is normal in the arms and legs except biceps which is 5-on the left but normal on the right. Sensory touch is equal with no neglect. No ataxia for [id number] testing. - Labs CBC & Chem 7: 03/04/23 10:33 03/04/23 10:33 Labs: Abnormal Lab Results - Last 24 Hours (Table) 03/04/23 03/04/23 Range/Units 10:33 10:33 Hct 46.7 H (34.0-46.0) % Glucose 186 H (74-99) mg/dL Assessment and Plan Assessment: * Acute ischemic stroke, multifocal (4 areas, but small), involving right hemispheric region involving the right ayala radiata and right posterior frontal lobe cortex. Probable due to symptomatic right ICA stenosis. Patient takes aspirin 81 mg daily. CTA of head and neck revealed slightly less than 50% stenosis right ICA, which probably is symptomatic. * Right ICA stenosis, moderate degree * Hypertension * Hyperlipidemia Plan: * MRI of the brain without contrast, revealed acute/subacute right ayala radiata and right posterior frontal lobe cortical CVA. Nonspecific white matter changes, likely secondary to small vessel ischemic disease. I personally reviewed MRI, agree with the findings. * CTA neck showed: Noncalcified plaque contributing to mild, just under 50% proximal right ICA stenosis. An anatomic variation, with a dominant right vertebral artery. * CTA of the head showed no large vessel intracranial arterial occlusion, significant stenosis or aneurysmal change. Anatomic radiation with persistent origin right SENIOR PRIVATE CLIENT ADVISOR. Hypoplastic A1 segment right BERENICE. * Carotid Doppler, for further evaluation of right ICA stenosis. * Carotid Doppler revealed 50-69% stenosis of the right bifurcation. Less than 50% stenosis of the left carotid bifurcation. Antegrade flow in both vertebral arteries. * 2-D echo revealed normal left ventricular wall thickness and EF is 50-55%. Normal left atrial size. Negative agitated saline study. [id number] posterior mitral calcification with mild MR. Mild to moderate aortic valve calcification with mild AI. No embolic source. * Vascular surgery input appreciated. Recommending TCAR as compared to carotid endarterectomy. This will be scheduled as an outpatient. * Fasting a.m. lipid panel cholesterol 169, LDL 95, HDL 61 and triglycerides 63. Agree with increasing Lipitor from 40 up to 80 mg daily to target LDL < 70. * Hemoglobin A1c 6.0. * Permissive hypertension for next 24-48 hours * Patient was taking aspirin 81 mg daily for last 10 years. Patient has failed aspirin regimen. We will add Plavix 75 mg daily. Initially recommended to continue DAPT for 21 days, then stop aspirin and continue Plavix. However with significant stenosis, recommending to continue DAPT until she had undergone revascularization procedure for the right ICA stenosis. * Patient strongly wants to go home. Patient and her relative are recommended to be very careful, to avoid any falls. They understand the risk. Do not want to wait for PT OT evaluation, which would not be able to do an until after Beni holidays. * Discussed with primary physician, clear for discharge.
== END 2023-03-04 17:25 | disposition home or self-care (01) | DRG 65 ==
LOC: SUPCPDRO 08:22 → EC 08:22 → 1SOBS 09:52 → 3SCARD 14:08
PROVIDERS: ADMIT Hospitalist; ATTEND Hospitalist
DX: I63.9 Cerebral infarction, unspecified (principal); G81.94 Hemiplegia, unspecified affecting left nondominant side; R47.81 Slurred speech; R29.704 NIHSS score 4; I10 Essential (primary) hypertension; K21.9 Gastro-esophageal reflux disease without esophagitis; E78.5 Hyperlipidemia, unspecified; E03.9 Hypothyroidism, unspecified; I65.21 Occlusion and stenosis of right carotid artery; K29.70 Gastritis, unspecified, without bleeding; Z79.890 Hormone replacement therapy; Z79.899 Other long term (current) drug therapy; Z86.16 Personal history of COVID-19
CPT/HCPCS: 36415; 70450; 70496; 70498; 70551; 71046; 80048; 80053; 80061; 80306; 81003; 82550; 83036; 84484; 85025; 85610; 85730; 93005; 93306; 93880; 99291

== ENCOUNTER 2024-01-19 16:50 | Emergency (ER) | payer MEDICARE ==
--- NOTE | 2024-01-19 17:19 | ED ---
Recheck HPI - General Source: patient, family, RN notes reviewed Mode of arrival: wheelchair Limitations: no limitations <Glendy Vera - Last Filed: 01/19/24 17:17> <Chevy Harley - Last Filed: 01/20/24 18:30> - General Chief Complaint: Recheck/Abnormal Lab/Rx Stated Complaint: Hypertension Time Seen by Provider: 01/19/24 17:05 - History of Present Illness Initial Comments: Quick [id number] female presenting to the emergency department with daughter for chief complaint of hypertension. Patient was feeling weak and mildly nauseated today prompting her to check her blood pressure that was elevated 214/110. Patient denies chest pain, shortness of breath, difficulty breathing, headaches, blurry or double vision. Patient recently increased losartan dosage to 50 mg. (Glendy Vera) - Related Data Home Medications Medication Instructions Recorded Confirmed Latanoprost [Latanoprost 0.005%] 1 drop BOTH EYES HS 03/03/23 03/03/23 Levothyroxine Sodium [Synthroid] 75 mcg PO DAILY 03/03/23 03/03/23 Omeprazole [PriLOSEC] 20 mg PO DAILY 03/03/23 03/03/23 Spironolactone [Aldactone] 25 mg PO DAILY 03/03/23 03/03/23 Timolol 0.5% Ophth Soln [Timoptic 1 drop BOTH EYES BID 03/03/23 03/03/23 0.5% Ophth Soln] amLODIPine [Norvasc] 5 mg PO BID 03/03/23 03/03/23 diazePAM [Valium] 5 mg PO DAILY PRN 03/03/23 03/03/23 Previous Rx's Medication Instructions Recorded Aspirin 81 mg PO DAILY tab 03/04/23 Atorvastatin Calcium [Lipitor] 80 mg PO HS #30 tablet 03/04/23 Clopidogrel [Plavix] 75 mg PO DAILY #30 tab 03/04/23 Allergies Allergy/AdvReac Type Severity Reaction Status Date / Time No Known Allergies Allergy Verified 01/19/24 17:00 Review of Systems ROS Other: All systems not noted in ROS Statement are negative. <Glendy Vera - Last Filed: 01/19/24 17:17> ROS Other: All systems not noted in ROS Statement are negative. <Chevy Harley - Last Filed: 01/20/24 18:30> ROS Statement: Those systems with pertinent positive or pertinent negative responses have been documented in the HPI. Past Medical History Past Medical History: Hyperlipidemia, Hypertension Additional Past Medical History / Comment(s): "Water pill for fluid in body," unsure why. Nerve pill. History of Any Multi-Drug Resistant Organisms: None Reported Past Surgical History: No Surgical Hx Reported Past Psychological History: No Psychological Hx Reported Smoking Status: Never smoker Past Alcohol Use History: None Reported Past Drug Use History: None Reported <StielerGlendy - Last Filed: 01/19/24 17:17> General Exam Limitations: no limitations <StielerGlendy - Last Filed: 01/19/24 17:17> Limitations: no limitations General appearance: alert, in no apparent distress Head exam: Present: atraumatic, normocephalic Eye exam: Present: normal appearance. Absent: scleral icterus, conjunctival injection Neck exam: Present: normal inspection, full ROM Respiratory exam: Present: normal lung sounds bilaterally. Absent: respiratory distress, wheezes, rales, rhonchi, accessory muscle use Cardiovascular Exam: Present: regular rate, normal rhythm, systolic murmur. Absent: diastolic murmur, rubs, gallop GI/Abdominal exam: Present: soft. Absent: distended, tenderness, guarding, rebound, rigid, mass Extremities exam: Present: normal inspection, normal capillary refill. Absent: pedal edema, calf tenderness Back exam: Present: normal inspection. Absent: CVA tenderness (R), CVA tenderness (L) Neurological exam: Present: alert Skin exam: Present: warm, dry, intact, normal color. Absent: rash <CricketChevy - Last Filed: 01/20/24 18:30> - General Exam Comments Initial Comments: Visual Physical Exam Vital signs reviewed General: Well-appearing, nontoxic, no acute distress. Head: Normocephalic, atraumatic Eyes: PERRLA, EOMI ENT: Airway patent Chest: Nonlabored breathing Skin: No visual rash, normal skin tone Neuro: Alert and oriented 3 Musculoskeletal: No gross abnormalities (Stieler,Glendy) Course Vital Signs 01/19/24 01/19/24 01/19/24 16:56 21:00 21:24 Temperature 97.7 F 97.4 F L Pulse Rate 75 88 70 Respiratory 16 16 18 Rate Blood Pressure 214/101 174/92 170/100 O2 Sat by Pulse 97 94 L 99 Oximetry Medical Decision Making <Glendy Vera - Last Filed: 01/19/24 17:17> - Lab Data Result diagrams: 01/19/24 18:26 01/19/24 18:26 - EKG Data -: EKG Interpreted by Me EKG shows normal: sinus rhythm, axis ( normal), intervals (Normal), QRS co mplexes (Normal), ST-T waves ( normal) Rate: normal (68 bpm) <Chevy Harley - Last Filed: 01/20/24 18:30> - Medical Decision Making I completed the quick note portion of this chart signed Glendy Vera PA-C (Glendy Vera) Was pt. sent in by a medical professional or institution ([facility], LABOR UNION BUSINESS REPRESENTATIVE, urgent care, hospital, or usp...) When possible be specific @ -[No] Did you speak to anyone other than the patient for history (EMS, parent, family, police, friend...)? What history was obtained from this source @ -[The patient's daughter contributed to history Did you review nursing and triage notes (agree or disagree)? Why? @ -[I reviewed and agree with nursing and triage notes] Were old charts reviewed (outside hosp., previous admission, EMS record, old EKG, old radiological studies, urgent care reports/EKG's, usp records)? Report findings @ -[No old charts were reviewed] Differential Diagnosis (chest pain, altered mental status, abdominal pain women, abdominal pain men, vaginal bleeding, weakness, fever, dyspnea, syncope, headache, dizziness, GI bleed, back pain, seizure, CVA, palpatations, mental health, musculoskeletal)? @ -[Amphetamine Toxicity Anxiety Disorders Apnea, Sleep Cocaine-Related Cardiomyopathy Heart Failure Hyperthyroidism, Thyroid Storm, and Graves Disease Hypertrophic Cardiomyopathy Myocardial Infarction Phencyclidine Toxicity Primary Aldosteronism Stroke, Hemorrhagic Stroke, Ischemic EKG interpreted by me (3pts min.). @ -I interpreted as above X-rays interpreted by me (1pt min.). @ -[None done] CT interpreted by me (1pt min.). @ -[None done] U/S interpreted by me (1pt. min.). @ -[None done] What testing was considered but not performed or refused? (CT, X-rays, U/S, labs)? Why? @ -[None] What meds were considered but not given or refused? Why? @ -[None] Did you discuss the management of the patient with other professionals (professionals i.e. , PA, LABOR UNION BUSINESS REPRESENTATIVE, lab, RT, psych nurse, licensed master social worker, process stripper, teacher, correctional security officer, case finisher)? Give summary @ -[No] Was smoking cessation discussed for >3mins.? @ -[No] Was critical care preformed (if so, how long)? @ -[No] Were there social determinants of health that impacted care today? How? (Homelessness, low income, unemployed, alcoholism, drug addiction, transpor tation, low edu. Level, literacy, decrease access to med. care, [facility], rehab)? @ -[No] Was there de-escalation of care discussed even if they declined (Discuss DNR or withdrawal of care, Hospice)? DNR status @ -[No] What co-morbidities impacted this encounter? (DM, HTN, Smoking, COPD, CAD, Cancer, CVA, ARF, Chemo, Hep., AIDS, mental health diagnosis, sleep apnea, morbid obesity)? @ -[Retention Was patient admitted / discharged? Hospital course, mention meds given and route, prescriptions, significant lab abnormalities, going to OR and other pertinent info. @ -[Patient is an 88-year-old woman here to have evaluation for hypertension. She has recently changed her antihypertensive regimen and this may be contributing to the blood pressure being elevated. Her blood pressure has improved here and she is feeling better and would like to go home. Discussed appropriate further care and follow-up Undiagnosed new problem with uncertain prognosis? @ -[No] Drug Therapy requiring intensive monitoring for toxicity (Heparin, Nitro, Insulin, Cardizem)? @ -[No] Were any procedures done? @ -[No] Diagnosis/symptom? @ -[Acute on chronic hypertension Acute, or Chronic, or Acute on Chronic? @ -[Acute on chronic Uncomplicated (without systemic symptoms) or Complicated (systemic symptoms)? @ -[Uncomplicated Side effects of treatment? @ -[No] Exacerbation, Progression, or Severe Exacerbation? @ -[No] Poses a threat to life or bodily function? How? (Chest pain, [place], [place], pneumonia, PE, COPD, DKA, ARF, appy, cholecystitis, CVA, Diverticulitis, Homicidal, Suicidal, threat to staff... and all critical care pts) @ -[No] (Chevy Harley) - Lab Data Lab Results 01/19/24 01/19/24 01/19/24 Range/Units 18:26 18:26 18:26 WBC 10.9 H (3.8-10.6) k/uL RBC 4.95 (3.80-5.40) m/uL Hgb 15.1 (11.4-16.0) gm/dL Hct 45.0 (34.0-46.0) % MCV 91.0 (80.0-100.0) fL MCH 30.4 (25.0-35.0) pg MCHC 33.5 (31.0-37.0) g/dL RDW 12.1 (11.5-15.5) % Plt Count 300 (150-450) k/uL MPV 7.3 Neutrophils % 61 % Lymphocytes % 29 % Monocytes % 6 % Eosinophils % 3 % Basophils % 0 % Neutrophils # 6.6 (1.3-7.7) k/uL Lymphocytes # 3.1 (1.0-4.8) k/uL Monocytes # 0.6 (0-1.0) k/uL Eosinophils # 0.3 (0-0.7) k/uL Basophils # 0.1 (0-0.2) k/uL PT 10.1 (10.0-12.5) sec INR 0.9 (<1.2) APTT 24.0 (22.0-30.0) sec Sodium 131 L (137-145) mmol/L Potassium 4.8 (3.5-5.1) mmol/L Chloride 98 (98-107) mmol/L Carbon Dioxide 29 (22-30) mmol/L Anion Gap 4 mmol/L BUN 14 (7-17) mg/dL Creatinine 0.72 (0.52-1.04) mg/dL Est GFR (CKD-EPI)AfAm 87 (>60 ml/min/1.73 sqM) Est GFR (CKD-EPI)NonAf 76 (>60 ml/min/1.73 sqM) Glucose 99 (74-99) mg/dL Calcium 9.6 (8.4-10.2) mg/dL Magnesium 2.0 (1.6-2.3) mg/dL Total Bilirubin 0.6 (0.2-1.3) mg/dL AST 31 (14-36) U/L ALT 16 (4-34) U/L Alkaline Phosphatase 93 (38-126) U/L Troponin I (0.000-0.034) ng/mL Total Protein 7.7 (6.3-8.2) g/dL Albumin 4.3 (3.5-5.0) g/dL 01/19/24 Range/Units 18:26 WBC (3.8-10.6) k/uL RBC (3.80-5.40) m/uL Hgb (11.4-16.0) gm/dL Hct (34.0-46.0) % MCV (80.0-100.0) fL MCH (25.0-35.0) pg MCHC (31.0-37.0) g/dL RDW (11.5-15.5) % Plt Count (150-450) k/uL MPV Neutrophils % % Lymphocytes % % Monocytes % % Eosinophils % % Basophils % % Neutrophils # (1.3-7.7) k/uL Lymphocytes # (1.0-4.8) k/uL Monocytes # (0-1.0) k/uL Eosinophils # (0-0.7) k/uL Basophils # (0-0.2) k/uL PT (10.0-12.5) sec INR (<1.2) APTT (22.0-30.0) sec Sodium (137-145) mmol/L Potassium (3.5-5.1) mmol/L Chloride (98-107) mmol/L Carbon Dioxide (22-30) mmol/L Anion Gap mmol/L BUN (7-17) mg/dL Creatinine (0.52-1.04) mg/dL Est GFR (CKD-EPI)AfAm (>60 ml/min/1.73 sqM) Est GFR (CKD-EPI)NonAf (>60 ml/min/1.73 sqM) Glucose (74-99) mg/dL Calcium (8.4-10.2) mg/dL Magnesium (1.6-2.3) mg/dL Total Bilirubin (0.2-1.3) mg/dL AST (14-36) U/L ALT (4-34) U/L Alkaline Phosphatase (38-126) U/L Troponin I <0.012 (0.000-0.034) ng/mL Total Protein (6.3-8.2) g/dL Albumin (3.5-5.0) g/dL Disposition <Glendy Vera - Last Filed: 01/19/24 17:17> Is patient prescribed a controlled substance at d/c from ED?: No <Chevy Harley - Last Filed: 01/20/24 18:30> Clinical Impression: Hypertension Disposition: HOME SELF-CARE Condition: Good Instructions (If sedation given, give patient instructions): Hypertension (ED) Referrals: Maty Peralta MD [Primary Care Provider] - 1-2 days
[2024-01-19 18:43] LABS: Basophils # (A) 0.1 k/uL (0-0.2); Basophils % (A) 0 %; Eosinophils # (A) 0.3 k/uL (0-0.7); Eosinophils % (A) 3 %; HGB 15.1 gm/dL (11.4-16.0); Lymphocytes # (A) 3.1 k/uL (1.0-4.8); Lymphocytes % (A) 29 %; MCH 30.4 pg (25.0-35.0); MCHC 33.5 g/dL (31.0-37.0); Mean Platelet Volume 7.3; Monocytes # (A) 0.6 k/uL (0-1.0); Monocytes % (A) 6 %; Neutrophils # (A) 6.6 k/uL (1.3-7.7); Neutrophils % (A) 61 %; Platelet Count 300 k/uL (150-450); RBC 4.95 m/uL (3.80-5.40); RDW 12.1 % (11.5-15.5); WBC 10.9 k/uL (3.8-10.6)
[2024-01-19 18:53] LABS: INR 0.9 (<1.2); Prothrombin Time 10.1 sec (10.0-12.5)
[2024-01-19 18:57] LABS: ALT 16 U/L (4-34); AST 31 U/L (14-36); African American GFR (CKD) 87 (>60 ml/min/1.73 sqM); Albumin 4.3 g/dL (3.5-5.0); Alkaline Phosphatase 93 U/L (38-126); Anion Gap 4 mmol/L; Blood Urea Nitrogen 14 mg/dL (7-17); Calcium 9.6 mg/dL (8.4-10.2); Carbon Dioxide 29 mmol/L (22-30); Chloride 98 mmol/L (98-107); Glucose 99 mg/dL (74-99); Non-African American GFR(CKD) 76 (>60 ml/min/1.73 sqM); Potassium 4.8 mmol/L (3.5-5.1); Sodium 131 mmol/L (137-145); Total Bilirubin 0.6 mg/dL (0.2-1.3); Total Protein 7.7 g/dL (6.3-8.2)
[2024-01-19 21:28] VITALS: BP 170/100; PULSE 70; RESP 18; TEMP 97.4
== END 2024-01-19 21:53 | disposition home or self-care (01) ==
LOC: EC 16:50
DX: I10 Essential (primary) hypertension (principal)
CPT/HCPCS: 36415; 80053; 83735; 84484; 85025; 85610; 85730; 93005; 99283